=== PATIENT | male | born 1965 | race African-American/Black ===

== ENCOUNTER 2017-11-12 21:16 | Emergency (ER) | payer SELFPAY ==
[~2017-11-12] VITALS: Ht 177.8 cm; Wt 122.0 kg
[2017-11-12 21:20] VITALS: BP 162/101
== END 2017-11-13 01:23 | disposition left against medical advice (07) ==
LOC: ER 21:16
DX: Z53.21 Procedure and treatment not carried out due to patient leaving prior to being seen by health care provider (principal); E11.9 Type 2 diabetes mellitus without complications; I10 Essential (primary) hypertension